=== PATIENT | female | born 2000 | race Caucasian/White ===

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

== ENCOUNTER 2019-02-13 22:14 | Emergency (ER) | payer SELFPAY ==
[2019-02-13 22:29] VITALS: BP 120/78; PULSE 98; TEMP 98.2; BMI 27.8
--- NOTE | 2019-02-14 00:43 | PDOC ---
Documentation entered by Clarisa Wesley SCRIBE, acting as scribe for Kyleigh Todd MD. Kyleigh Todd MD: This documentation has been prepared by the scribe, Clarisa Wesley SCRIBE, under my direction and personally reviewed by me in its entirety. I confirm that the documentation accurately reflects all work, treatment, procedures, and medical decision making performed by me. History of Present Illness - General Chief Complaint: Vaginal Bleeding Stated Complaint: ABDOMINAL PAIN Time Seen by Provider: 02/13/19 23:37 History Source: Patient Exam Limitations: No Limitations - History of Present Illness Initial Comments: 02/14/19 00:47 The patient is a 19 year old female, , currently 8 weeks with no significant past medical history who presents to the ED with 2 weeks of vaginal bleeding associated with bilateral lower quadrant abdominal cramping, progressively getting worse after she ate sweet crepe. Pt reports passing clots and going through 5 pads per day. Pt reports nausea and 1 episode of nbnb emesis. As per patient she went to [facility] 2 weeks ago at the initial start of her vaginal bleeding, found out she was , was told to f/u with [facility]LINE ACTIV[facility] , however, the patient did not. Patient notes she went to [facility] ED again this Tuesday (02/11/19) because of continued cramping and was given morphine, Tylenol, and zofran, noted her HCG was low, and could not appreciate anything on [employer]. Patient reports she followed up with her PCP on Tuesday (02/12/19 ) and states that her HCG was 300. The patient denies chest pain, SOB, headache and dizziness. Denies fever, chills , cough, diarrhea and constipation. Denies dysuria, frequency, urgency and hematuria. Allergies: NKDA PCP: Dr. Suzy Davenport Past History - Past Medical History Allergies/Adverse Reactions: Allergies Allergy/AdvReac Type Severity Reaction Status Date / Time No Known Allergies Allergy Verified 03/21/17 02:41 Home Medications: Ambulatory Orders Cephalexin Monohydrate [Keflex -] 500 mg PO BID #10 capsule 02/14/19 COPD: No - Psycho Social/Smoking Cessation Hx Smoking History: Never smoked Have you smoked in the past 12 months: No Hx Alcohol Use: No Drug/Substance Use Hx: No Substance Use Type: None Review of Systems - Review of Systems Able to Perform ROS?: Yes Comments:: 02/14/19 00:48 GENERAL/CONSTITUTIONAL: No fever or chills. No weakness. HEAD, EYES, EARS, NOSE AND THROAT: No change in vision. No ear pain or discharge. No sore throat. CARDIOVASCULAR: No chest pain or shortness of breath. RESPIRATORY: No cough, wheezing, or hemoptysis. GASTROINTESTINAL: +Abdominal cramping, nausea, and vomiting. No diarrhea or constipation. GENITOURINARY: No dysuria, frequency, or change in urination. PELVIC: +Vaginal bleeding with clots. MUSCULOSKELETAL: No joint or muscle swelling or pain. No neck or back pain. SKIN: No rash NEUROLOGIC: No headache, vertigo, loss of consciousness, or change in strength/ sensation. ENDOCRINE: No increased thirst. No abnormal weight change. HEMATOLOGIC/LYMPHATIC: No anemia, easy bleeding, or history of blood clots. ALLERGIC/IMMUNOLOGIC: No hives or skin allergy. *Physical Exam - Vital Signs Last Vital Signs Temp Pulse Resp BP Pulse Ox 98.2 F 98 H 20 120/78 100 02/13/19 22:21 02/13/19 22:21 02/13/19 22:21 02/13/19 22:21 02/13/19 22:21 - Physical Exam Comments: 02/14/19 00:58 GENERAL: Awake, alert, and fully oriented, in no acute distress NECK: Normal ROM, supple, no lymphadenopathy, JVD, or masses LUNGS: Breath sounds equal, clear to auscultation bilaterally. No wheezes, and no crackles HEART: Regular rate and rhythm, normal S1 and S2, no murmurs, rubs or gallops ABDOMEN: Soft, normoactive bowel sounds. No guarding, no rebound. No masses PELVIC: + mild L adnexal tenderness. + scant blood in vaginal vault, No CME, Cervix closed. EXTREMITIES: Normal range of motion, no edema. No clubbing or cyanosis. No cords, erythema, or tenderness NEUROLOGICAL: Cranial nerves II through XII grossly intact. SKIN: Warm, Dry, normal turgor, no rashes or lesions noted. ED Treatment Course - LABORATORY CBC & Chemistry Diagram: 02/14/19 00:40 02/14/19 00:40 Medical Decision Making - Medical Decision Making 02/14/19 00:40 This is a 19-year-old female who states she is 8 weeks and has had vaginal spotting and cramping for the past 2 weeks and has used 5 pads a day 02/14/19 01:49 LMP was December 21 Her beta-hCG is only 315 Hemoglobin is 13 and hematocrit is 39 with adequate platelets, has no anemia Chemistries were reviewed she has normal renal function, electrolytes are within normal limits as are her LFTs however Her glucose is elevated to 145 UA shows a mild UTI which we started antibiotics Blood type is O+ Transvaginal ultrasound shows no right ovarian torsion, color flow with appropriate arterial and venous waveforms Bowel gas obscuring the left ovary Small physiologic free fluid anterior and posterior cul-de-sac Normal uterus, there is thickened endometrial stripe of 3 mm Patient has an appointment to see her PCP tomorrow and is told to follow-up she will need Plan a repeat beta-hCG and pelvic ultrasound in 48 hours Impression threatened AB, UTI Impression early versus incomplete AB 02/14/19 02:01 Discharge - Discharge Information Problems reviewed: No Clinical Impression/Diagnosis: Vaginal bleeding affecting early , Hyperglycemia Qualifiers: Weeks of gestation: less than 8 weeks Qualified Code(s): Z3A.01 - Less than 8 weeks gestation of UTI (urinary tract infection) Qualifiers: Urinary tract infection type: site unspecified Hematuria presence: without hematuria Qualified Code(s): N39.0 - Urinary tract infection, site not specified Condition: Stable Disposition: HOME - Additional Discharge Information Prescriptions: Cephalexin Monohydrate [Keflex -] 500 mg PO BID #10 capsule - Follow up/Referral Referrals: Suzy Davenport MD [Primary Care Provider] - - Patient Discharge Instructions Patient Printed Discharge Instructions: DI for Urinary Tract Infection (UTI), DI for Vaginal Bleeding During Additional Instructions: YOU NEED TO HAVE REPEAT BHCG AND PELVIC ULTRASOND IN 48 HOURS PLEASE KEEP YOUR APPOINTMENT WITH YOUR DOCTOR TOMORROW - Post Discharge Activity
[2019-02-14 01:15] LABS: HEMATOCRIT 39.3 % (32.4-45.2); HEMOGLOBIN 13.2 GM/dL (10.7-15.3); MCH 30.4 pg (25.7-33.7); MCHC 33.6 g/dl (32.0-36.0); MEAN CELL VOLUME 90.6 fl (80-96); MEAN PLT VOLUME 11.2 fl (7.5-11.1); PLATELET COUNT 290 K/MM3 (134-434); RBC 4.33 M/mm3 (3.60-5.2); RDW 12.8 % (11.6-15.6); WHITE BLOOD COUNT 18.4 K/mm3 (4.0-10.0)
[2019-02-14 01:18] LABS: EPI CELLS 25.8 /HPF (0-5/HPF); HYALINE CASTS 13 /lpf (0-8); PH,URINE 6.5 (5.0-8.0); URINE APPEARANCE CLOUDY; URINE BACTERIA 562.9 /hpf (NEGATIVE); URINE BILIRUBIN NEGATIVE (NEGATIVE); URINE COLOR DK YELLOW; URINE GLUCOSE (UA) NEGATIVE (NEGATIVE); URINE KETONE TRACE (NEGATIVE); URINE LEUK ESTERASE 1+ (NEGATIVE); URINE NITRITE NEGATIVE (NEGATIVE); URINE PROTEIN 1+ (NEGATIVE); URINE RBC 142 /hpf (0-4); URINE WBC 15 /hpf (0-5)
[2019-02-14 01:40] LABS: ALBUMIN 4.2 g/dl (3.4-5.0); BILIRUBIN,TOTAL 0.4 mg/dL (0.2-1); BLOOD UREA NITROGEN 11.6 mg/dL (7-18); CALCIUM 9.3 mg/dL (8.5-10.1); CREATININE 0.8 mg/dL (0.55-1.3); POTASSIUM 3.8 mmol/L (3.5-5.1); TOT PROT 7.5 g/dl (6.4-8.2)
[2019-02-14] MEDS ORDERED: ACETAMINOPHEN 325 MG TABLET (FP) PO ONE (01:45)
[2019-02-14] MEDS ORDERED: ACETAMINOPHEN 325 MG TABLET (FP) ONE (01:51)
== END 2019-02-14 02:30 | disposition home or self-care (01) ==
LOC: JER 22:14
DX: O26.891 Other specified pregnancy related conditions, first trimester (principal); O20.0 Threatened abortion; O23.41 Unspecified infection of urinary tract in pregnancy, first trimester; R73.9 Hyperglycemia, unspecified; Z3A.08 8 weeks gestation of pregnancy
CPT/HCPCS: 36415; 76830-TC; 80053; 81003; 84702; 85027; 86850; 86900; 86901; 99283-25

== ENCOUNTER 2019-02-15 20:09 | Emergency (ER) | payer SELFPAY ==
--- NOTE | 2019-02-15 20:11 | PDOC ---
Rapid Medical Evaluation Time Seen by Provider: 02/15/19 20:10 Medical Evaluation: Allergies Allergy/AdvReac Type Severity Reaction Status Date / Time No Known Allergies Allergy Verified 03/21/17 02:41 02/15/19 20:10 HPI: Vaginal Bleeding and abdominal pain PE: No gross deficits ORDERS: Labs and US Discharge Disposition - Diagnosis Vaginal bleeding affecting early - Referrals - Patient Instructions - Post Discharge Activity
[2019-02-15 20:15] VITALS: BP 123/75; PULSE 88; TEMP 98.2; BMI 25.6
[2019-02-15 20:58] LABS: BASO % 0.5 % (0-2.0); EOS % 2.4 % (0-4.5); HEMATOCRIT 33.1 % (32.4-45.2); HEMOGLOBIN 11.3 GM/dL (10.7-15.3); LYMPH % 12.6 % (8-40); MCH 30.9 pg (25.7-33.7); MCHC 34.3 g/dl (32.0-36.0); MEAN CELL VOLUME 90.2 fl (80-96); MEAN PLT VOLUME 10.5 fl (7.5-11.1); MONO % 4.1 % (3.8-10.2); NEUT % 80.4 % (42.8-82.8); PLATELET COUNT 256 K/MM3 (134-434); RBC 3.67 M/mm3 (3.60-5.2); RDW 12.9 % (11.6-15.6); WHITE BLOOD COUNT 11.7 K/mm3 (4.0-10.0)
[2019-02-15 21:39] LABS: EPI CELLS 4.6 /HPF (0-5/HPF); HYALINE CASTS 7 /lpf (0-8); PH,URINE 8.5 (5.0-8.0); URINE APPEARANCE TURBID; URINE BACTERIA 79.7 /hpf (NEGATIVE); URINE BILIRUBIN NEGATIVE (NEGATIVE); URINE COLOR YELLOW; URINE GLUCOSE (UA) NEGATIVE (NEGATIVE); URINE KETONE 1+ (NEGATIVE); URINE LEUK ESTERASE NEGATIVE (NEGATIVE); URINE NITRITE NEGATIVE (NEGATIVE); URINE PROTEIN NEGATIVE (NEGATIVE); URINE RBC 1 /hpf (0-4); URINE WBC 2 /hpf (0-5)
[2019-02-15] MEDS ORDERED: SODIUM CHLORIDE 0.9% 500 ML INFUS.BAG IV ONE (22:26)
[2019-02-15] MEDS ORDERED: ACETAMINOPHEN 1000 MG/100 ML VIAL (NON FORMULARY) IVPB ONE (22:49)
[2019-02-15 23:01] LABS: BASO % 0.6 % (0-2.0); EOS % 2.3 % (0-4.5); HEMOGLOBIN 11.9 GM/dL (10.7-15.3); LYMPH % 13.7 % (8-40); MCH 31.5 pg (25.7-33.7); MCHC 35.1 g/dl (32.0-36.0); MEAN CELL VOLUME 89.8 fl (80-96); MEAN PLT VOLUME 11.3 fl (7.5-11.1); MONO % 3.2 % (3.8-10.2); NEUT % 80.2 % (42.8-82.8); PLATELET COUNT 272 K/MM3 (134-434); RBC 3.78 M/mm3 (3.60-5.2); RDW 13.1 % (11.6-15.6); WHITE BLOOD COUNT 10.7 K/mm3 (4.0-10.0)
[2019-02-15] MEDS ORDERED: ACETAMINOPHEN INJECTION 100 ML IVPB ONE (23:19)
--- NOTE | 2019-02-16 01:00 | PDOC ---
Documentation entered by Connor Redd SCRIBE, acting as scribe for Yaima Nath MD. Yaima Nath MD: This documentation has been prepared by the Tramaine rose Daniel, SCRIBE, under my direction and personally reviewed by me in its entirety. I confirm that the documentation accurately reflects all work, treatment, procedures, and medical decision making performed by me. History of Present Illness - General Chief Complaint: Vaginal Bleeding Stated Complaint: BLEEDING Time Seen by Provider: 02/15/19 20:10 History Source: Patient Exam Limitations: No Limitations - History of Present Illness Initial Comments: 02/15/19 21:31 The patient is a 19 year old female with no past medical history here today for evaluation of vaginal bleeding and abdominal pain. The patient was seen 2 days ago for vaginal bleeding and received a full work up including an US and had an HCG of 315. Patient comes in today for persistent worsening vaginal bleeding and abdominal pain that started 2 weeks ago. She notes that around 2 PM her abdominal pain worsened and describes it as severe and cramping. Patient states that she took tylenol with no relief. She notes associated nausea and 7 episodes of diarrhea. She also notes that she had to use 5 panty liners and 3 pads today due to her vaginal bleeding. Patient denies headache, lightheadedness. Denies fever, chills. Denies chest pain, shortness of breath. Denies nausea, vomiting, diarrhea. LMP: 12/21/18 Allergies: NKA Surgical history: none PCP: Suzy Davenport Past History - Past Medical History Allergies/Adverse Reactions: Allergies Allergy/AdvReac Type Severity Reaction Status Date / Time No Known Allergies Allergy Verified 03/21/17 02:41 Home Medications: Ambulatory Orders Cephalexin Monohydrate [Keflex -] 500 mg PO BID #10 capsule 02/14/19 COPD: No - Reproductive History (#): 1 Para: 0 Therapeutic (s) & number: No Spontaneous : 0 - Psycho Social/Smoking Cessation Hx Smoking History: Never smoked Have you smoked in the past 12 months: No Hx Alcohol Use: No Drug/Substance Use Hx: No Substance Use Type: None Review of Systems - Review of Systems Able to Perform ROS?: Yes Comments:: 02/15/19 21:31 GENERAL/CONSTITUTIONAL: No fever or chills. No weakness. HEAD, EYES, EARS, NOSE AND THROAT: No change in vision. No ear pain or discharge. No sore throat. CARDIOVASCULAR: No chest pain or shortness of breath. RESPIRATORY: No cough, wheezing, or hemoptysis. GASTROINTESTINAL: +diarrhea. +nausea. No vomiting or constipation. GENITOURINARY: +vaginal bleeding. No dysuria, frequency, or change in urination. MUSCULOSKELETAL: No joint or muscle swelling or pain. No neck or back pain. SKIN: No rash NEUROLOGIC: No headache, vertigo, loss of consciousness, or change in strength/ sensation. ENDOCRINE: No increased thirst. No abnormal weight change. HEMATOLOGIC/LYMPHATIC: No anemia, easy bleeding, or history of blood clots. ALLERGIC/IMMUNOLOGIC: No hives or skin allergy. *Physical Exam - Vital Signs Last Vital Signs Temp Pulse Resp BP Pulse Ox 98.2 F 88 20 123/75 100 02/15/19 20:12 02/15/19 20:12 02/15/19 20:12 02/15/19 20:12 02/15/19 20:12 - Physical Exam Comments: 02/15/19 23:57 GENERAL: Awake, alert, and fully oriented, in no acute distress HEAD: No signs of trauma EYES: PERRLA, EOMI, sclera anicteric, conjunctiva clear ENT: Auricles normal inspection, hearing grossly normal, nares patent, oropharynx clear without exudates. Moist mucosa NECK: Normal ROM, supple, no lymphadenopathy, JVD, or masses LUNGS: Breath sounds equal, clear to auscultation bilaterally. No wheezes, and no crackles HEART: Regular rate and rhythm, normal S1 and S2, no murmurs, rubs or gallops ABDOMEN: Soft, nontender, normoactive bowel sounds. No guarding, no rebound. No masses EXTREMITIES: Normal range of motion, no edema. No clubbing or cyanosis. No cords, erythema, or tenderness NEUROLOGICAL: Cranial nerves II through XII grossly intact. Normal speech, normal gait SKIN: Warm, Dry, normal turgor, no rashes or lesions noted. ED Treatment Course - LABORATORY CBC & Chemistry Diagram: 02/15/19 22:57 - ADDITIONAL ORDERS Additional order review: 02/15/19 20:43 RBC 3.67 MCV 90.2 MCHC 34.3 RDW 12.9 MPV 10.5 Neutrophils % 80.4 Lymphocytes % 12.6 Monocytes % 4.1 Eosinophils % 2.4 Basophils % 0.5 Medical Decision Making - Medical Decision Making 02/15/19 21:32 Pt's Hb/HCT stable 02/15/19 22:07 Pt is taking keflex for a UTI; she has fewer bacteria in her urine and no leukicytes today. HCG has fone down from 315 to 189 02/15/19 22:09 Awaiting on her sono exam result 02/15/19 22:09 02/15/19 22:[address] Bunch, who suggests that pt follows as an outpatient; he is not concerned about the FF in the pelvis and the fact that pt's HB dropped 2 points. Pt is in fact hemodynamically stable and she has a HR of 88bpm. floorworker lasting doesnt feel that a laparoscopy is needed at this time. 02/15/19 23:17 Pt is receiving 1 L NSS as well as ofirmev Pt's soongram is still pending Pt has a CBC pending 02/15/19 23:53 Patient Name: JENNIFER MARTIN THIS IS A PRELIMINARY REPORT FROM [facility] CURATOR EXAM: Ultrasound Pelvic Transabdominal and Transvaginal Duplex scans ovaries (arterial/venous) imaging IMAGES: 31 EXAM DATE AND TIME: 2019-02-15 21:27:53 HISTORY: 19 year old woman: Retained products of conception. COMPARISON: None FINDINGS: The uterus is normal size, exhibits normal contours and echotexture. The uterus measures 5.3 x 3.2 x 4.1 cm ([id number]). The endometrial stripe measures 2.9 mm in thickness. There is a moderate amount of free fluid within the anterior and posterior posterior cul-de-sac. Ovarian arterial blood flow is normal by color and spectral Doppler assessment. There are no ovarian masses. The right ovary measures 3.3 x 1.9 x 2.4 cm. The left ovary measures 2.8 x 1.5 x 1.4 cm. IMPRESSION: Moderate amount of fluid within the anterior and posterior cul-de- sac. Endometrial stripe measuring 2.9 cm in thickness. 02/15/19 23:55 Pt's HCT is stable over the last few hrs. Her vag exam shows closed os and minimal blood in the cul de sac. Pt is stable to go home. Discharge - Discharge Information Problems reviewed: Yes Clinical Impression/Diagnosis: Miscarriage Condition: Improved Disposition: HOME - Admission No - Follow up/Referral Referrals: Suzy Davenport MD [Primary Care Provider] - - Patient Discharge Instructions Patient Printed Discharge Instructions: Miscarriage - Post Discharge Activity
== END 2019-02-16 00:14 | disposition home or self-care (01) ==
LOC: JER 20:09
PROC: 3E033NZ Introduction of Analgesics, Hypnotics, Sedatives into Peripheral Vein, Percutaneous Approach (ICD-10-PCS; principal; 2019-02-15)
PROC: 3E0337Z Introduction of Electrolytic and Water Balance Substance into Peripheral Vein, Percutaneous Approach (ICD-10-PCS; 2019-02-15)
DX: O03.9 Complete or unspecified spontaneous abortion without complication (principal)
CPT/HCPCS: 36415; 76817-TC; 81003; 84702; 84703; 85025; 86850; 86900; 86901; 99283-25; J0131

== ENCOUNTER 2022-10-07 20:31 | Emergency (ER) | payer OTHER ==
[2022-10-07 20:48] VITALS: BP 115/77; PULSE 79; RESP 18; TEMP 98.4; BMI 24.1
[2022-10-07] MEDS ORDERED: ACETAMINOPHEN 325 MG TABLET (FP) PO ONE (22:02)
[2022-10-07] MEDS ORDERED: DIPHTH,PERTUSS(ACELL),TET 0.5 ML DISP.SYRIN IM ONE ×2 (22:02→22:04)
[2022-10-07] MEDS ORDERED: ACETAMINOPHEN 325 MG TABLET (FP) ONE (22:03)
== END 2022-10-07 22:25 | disposition home or self-care (01) ==
LOC: JERFT 20:31
PROC: 3E0234Z Introduction of Serum, Toxoid and Vaccine into Muscle, Percutaneous Approach (ICD-10-PCS; principal; 2022-10-07)
DX: S16.1XXA Strain of muscle, fascia and tendon at neck level, initial encounter (principal); S00.81XA Abrasion of other part of head, initial encounter; S00.411A Abrasion of right ear, initial encounter; R51.9 Headache, unspecified; M54.2 Cervicalgia; Y04.2XXA Assault by strike against or bumped into by another person, initial encounter; Y93.9 Activity, unspecified; Y92.9 Unspecified place or not applicable
CPT/HCPCS: 90471; 90715; 99283-25

== ENCOUNTER 2023-04-04 23:30 | Emergency (ER) | payer SELFPAY ==
[2023-04-04 23:35] VITALS: BP 116/72; PULSE 92; RESP 18; TEMP 98.4; BMI 26.0
[2023-04-04 23:59] LABS: BASO % 0.5 % (0-2.0); EOS % 1.5 % (0-4.5); HEMATOCRIT 38.9 % (32.4-45.2); HEMOGLOBIN 13.4 GM/dL (10.7-15.3); MCH 30.8 pg (25.7-33.7); MCHC 34.4 g/dl (32.0-36.0); MEAN CELL VOLUME 89.5 fl (80-96); MEAN PLT VOLUME 10.8 fl (7.5-11.1); MONO % 5.7 % (3.8-10.2); NEUT % 72.3 % (42.8-82.8); PLATELET COUNT 219 10^3/uL (134-434); RBC 4.34 M/mm3 (3.60-5.2); RDW 12.8 % (11.6-15.6); WHITE BLOOD COUNT 12.6 K/mm3 (4.0-10.0)
[2023-04-05 00:13] LABS: INR 1.05 (0.83-1.09); PROTHROMBIN TIME (PATIENT) 12.2 SEC (9.7-13.0)
[2023-04-05 00:15] LABS: ACTIVATED PTT 29.7 SECONDS (25.2-36.5)
[2023-04-05 00:17] LABS: POTASSIUM 3.5 mmol/L (3.5-5.1)
[2023-04-05 00:20] LABS: CALCIUM 9.1 mg/dL (8.5-10.1)
[2023-04-05 00:21] LABS: ALBUMIN 3.7 g/dl (3.4-5.0); BLOOD UREA NITROGEN 8.6 mg/dL (7-18)
[2023-04-05 00:23] LABS: CREATININE 0.6 mg/dL (0.55-1.3)
[2023-04-05 00:26] LABS: BILIRUBIN,TOTAL 0.6 mg/dL (0.2-1)
[2023-04-05 00:36] LABS: EPI CELLS >36 /uL (0-25.1); HYALINE CASTS 2 /uL (0-3.1); PH,URINE 5.5 (5.0-8.0); URINE APPEARANCE CLOUDY; URINE BACTERIA 249 /uL (0-1359); URINE BILIRUBIN NEGATIVE (NEGATIVE); URINE COLOR YELLOW; URINE GLUCOSE (UA) NEGATIVE (NEGATIVE); URINE KETONE 4+ (NEGATIVE); URINE LEUK ESTERASE TRACE (NEGATIVE); URINE NITRITE NEGATIVE (NEGATIVE); URINE PROTEIN NEGATIVE (NEGATIVE); URINE RBC 14 /uL (0-23.9); URINE UROBILINOGEN 0.2 mg/dL (0.2-1.0); URINE WBC 13 /uL (0-25.8)
== END 2023-04-05 01:36 | disposition home or self-care (01) ==
LOC: JER 23:30
DX: O20.9 Hemorrhage in early pregnancy, unspecified (principal); O26.891 Other specified pregnancy related conditions, first trimester; R10.9 Unspecified abdominal pain; Z3A.00 Weeks of gestation of pregnancy not specified
CPT/HCPCS: 36415; 80053; 81003; 84702; 85025; 85610; 85730; 86850; 86900; 86901; 87086; 87491; 87591; 99283-25

== ENCOUNTER 2023-04-05 18:51 | Emergency (ER) | payer SELFPAY ==
[2023-04-05 19:19] VITALS: BP 105/57; PULSE 84; RESP 18; TEMP 98.2; BMI 26.0
== END 2023-04-05 23:11 | disposition home or self-care (01) ==
LOC: JER 18:51
DX: O20.9 Hemorrhage in early pregnancy, unspecified (principal); Z3A.08 8 weeks gestation of pregnancy
CPT/HCPCS: 76801-TC; 99284-25

== ENCOUNTER 2023-08-02 11:43 | Observation (INO) | payer OTHER ==
[2023-08-02] MEDS: ELECTROLYTE-148 SOLN 1,000 ML IV SCH (12:30)
[2023-08-02] MEDS ORDERED: BETAMET ACET/BETAMET NA PH 30 MG/5 ML VIAL ONE (12:33)
[2023-08-02] MEDS: BETAMET ACET/BETAMET NA PH 30 MG/5 ML VIAL IM ONE (12:45)
[2023-08-02 12:57] LABS: BASO % 0.2 % (0-2.0); EOS % 0.9 % (0-4.5); HEMATOCRIT 34.3 % (32.4-45.2); HEMOGLOBIN 11.8 GM/dL (10.7-15.3); LYMPH % 15.6 % (8-40); MCH 31.8 pg (25.7-33.7); MCHC 34.5 g/dl (32.0-36.0); MEAN CELL VOLUME 92.2 fl (80-96); MONO % 4.7 % (3.8-10.2); NEUT % 78.6 % (42.8-82.8); PLATELET COUNT 186 10^3/uL (134-434); RBC 3.72 M/mm3 (3.60-5.2); RDW 12.4 % (11.6-15.6); WHITE BLOOD COUNT 8.8 K/mm3 (4.0-10.0)
[2023-08-02 12:59] LABS: PH,URINE 7.5 (5.0-8.0); URINE APPEARANCE CLEAR; URINE BILIRUBIN NEGATIVE (NEGATIVE); URINE COLOR YELLOW; URINE GLUCOSE (UA) NEGATIVE (NEGATIVE); URINE KETONE NEGATIVE (NEGATIVE); URINE LEUK ESTERASE NEGATIVE (NEGATIVE); URINE NITRITE NEGATIVE (NEGATIVE); URINE PROTEIN NEGATIVE (NEGATIVE); URINE UROBILINOGEN 0.2 mg/dL (0.2-1.0)
[2023-08-02 13:06] LABS: INR 0.92 (0.83-1.09); PROTHROMBIN TIME (PATIENT) 10.4 SEC (9.7-13.0)
[2023-08-02 13:09] LABS: ACTIVATED PTT 27.3 SECONDS (25.2-36.5)
[2023-08-02 13:16] LABS: CHLORIDE 104 mmol/L (98-107); POTASSIUM 3.6 mmol/L (3.5-5.1); SODIUM 137 mmol/L (136-145)
[2023-08-02 13:18] LABS: ANION GAP 6 mmol/L (4-13); BLOOD UREA NITROGEN 7.9 mg/dL (7-18); CALCIUM 9.2 mg/dL (8.5-10.1); CO2 27 mmol/L (21-32); GLUCOSE,RANDOM 81 mg/dL (74-106)
[2023-08-02 13:21] LABS: CREATININE 0.4 mg/dL (0.55-1.3)
[2023-08-02 13:44] LABS: SYPHILIS W/ RPR CONF NON-REACTIVE (NONREACTIVE)
[2023-08-02 14:27] VITALS: BMI 28.3
[2023-08-02] MEDS ORDERED: ACETAMINOPHEN 500 MG TABLET (FP) PO PRN (14:56)
[2023-08-03] MEDS: BETAMET ACET/BETAMET NA PH 30 MG/5 ML VIAL IM SCH (12:45)
[2023-08-03] MEDS ORDERED: BETAMET ACET/BETAMET NA PH 30 MG/5 ML VIAL ONE (12:51)
[2023-08-03 13:43] VITALS: BP 108/60; PULSE 72; RESP 18; TEMP 97.8
== END 2023-08-03 13:00 | disposition home or self-care (01) ==
LOC: JLDR 11:43
PROVIDERS: ADMIT Obstetrics & Gynecology; ATTEND Obstetrics & Gynecology
PROC: 3E0233Z Introduction of Anti-inflammatory into Muscle, Percutaneous Approach (ICD-10-PCS; principal; 2023-08-02)
PROC: 3E033GC Introduction of Other Therapeutic Substance into Peripheral Vein, Percutaneous Approach (ICD-10-PCS; 2023-08-02)
DX: O34.32 Maternal care for cervical incompetence, second trimester (principal); Z3A.24 24 weeks gestation of pregnancy; R10.2 Pelvic and perineal pain; Z87.891 Personal history of nicotine dependence
CPT/HCPCS: 36415; 80048; 81003; 85025; 85610; 85730; 86780; 86803; 86850; 86900; 86901; 87086; 96365; 96372; G0378

== ENCOUNTER 2023-11-03 19:17 | Inpatient (IN) | payer OTHER ==
[2023-11-03 20:06] LABS: BASO % 0.2 % (0-2.0); EOS % 0.5 % (0-4.5); HEMATOCRIT 34.6 % (32.4-45.2); MCH 30.4 pg (25.7-33.7); MCHC 34.5 g/dl (32.0-36.0); MEAN PLT VOLUME 10.1 fl (7.5-11.1); NEUT % 75.3 % (42.8-82.8); PLATELET COUNT 196 10^3/uL (134-434); RBC 3.94 M/mm3 (3.60-5.2); RDW 13.2 % (11.6-15.6); WHITE BLOOD COUNT 10.1 K/mm3 (4.0-10.0)
[2023-11-03 20:07] LABS: INR 0.87 (0.83-1.09); PROTHROMBIN TIME (PATIENT) 10.1 SEC (9.7-13.0)
[2023-11-03 20:09] LABS: ACTIVATED PTT 27.5 SECONDS (25.2-36.5)
[2023-11-03 20:12] LABS: POTASSIUM 3.5 mmol/L (3.5-5.1)
[2023-11-03 20:14] LABS: BLOOD UREA NITROGEN 11.4 mg/dL (7-18); CALCIUM 9.2 mg/dL (8.5-10.1)
[2023-11-03 20:18] LABS: CREATININE 0.6 mg/dL (0.55-1.3)
[2023-11-03 20:38] VITALS: BMI 31.6
[2023-11-03 21:09] LABS: HIV INTERPRETATION NEGATIVE (NEGATIVE)
[2023-11-04] MEDS ORDERED: OXYTOCIN 30 UNITS in 0.9% NS 30 UNIT/500 ML INFUS.BAG IVPB ONE (02:51)
[2023-11-04] MEDS: OXYTOCIN 30 UNITS in 0.9% NS 30 UNIT/500 ML INFUS.BAG IVPB SCH (03:00)
[2023-11-04] MEDS: ELECTROLYTE-148 SOLN 1,000 ML IV SCH (03:00)
[2023-11-04] MEDS ORDERED: FENTANYL/BUPIVACAINE/NS/PF - PCEA - 50 ML DISP.SYRIN EP ONE (09:13)
[2023-11-04] MEDS: FENTANYL/BUPIVACAINE/NS/PF - PCEA - 50 ML DISP.SYRIN EP SCH (09:41)
[2023-11-04] MEDS ORDERED: OXYTOCIN 20 UNITS in 0.9% NS 20 UNIT/1,000 ML INFUS.BAG IV ONE (11:28)
[2023-11-04] MEDS ORDERED: NALOXONE HCL 0.4 MG/ML VIAL IVPUSH PRN (12:00)
[2023-11-04] MEDS: OXYTOCIN 20 UNITS in 0.9% NS 20 UNIT/1,000 ML INFUS.BAG IV SCH (12:19)
[2023-11-04] MEDS ORDERED: WITCH HAZEL 50% (TUCKS) 40 PAD/JAR PAD TP PRN (12:40)
[2023-11-04] MEDS ORDERED: METHYLERGONOVINE MALEATE 0.2 MG/1 ML AMP IM PRN (12:40)
[2023-11-04] MEDS ORDERED: BISACODYL 10 MG SUPP.RECT RC PRN (12:40)
[2023-11-04] MEDS ORDERED: BENZOCAINE 28 GM HEMORRHOIDAL OINTMENT TP PRN (12:40)
[2023-11-04 15:04] VITALS: RESP 18
[2023-11-04] MEDS: IBUPROFEN 600 MG TABLET (FP) PO PRN (20:16)
[2023-11-04] MEDS: BENZOCAINE 20% 57 GM BOTTLE TP PRN (20:17)
[2023-11-05 06:51] LABS: BASO % 0.5 % (0-2.0); EOS % 0.8 % (0-4.5); HEMATOCRIT 30.8 % (32.4-45.2); HEMOGLOBIN 10.7 GM/dL (10.7-15.3); LYMPH % 24.2 % (8-40); MCHC 34.7 g/dl (32.0-36.0); MEAN CELL VOLUME 89.4 fl (80-96); MEAN PLT VOLUME 10.1 fl (7.5-11.1); NEUT % 67.5 % (42.8-82.8); PLATELET COUNT 167 10^3/uL (134-434); RBC 3.45 M/mm3 (3.60-5.2); WHITE BLOOD COUNT 9.1 K/mm3 (4.0-10.0)
[2023-11-05] MEDS: PRENATAL VITAMINS W/ FOLIC ACID TABLET (FP) PO SCH (09:32)
[2023-11-05] MEDS: SENNOSIDES/DOCUSATE COMBO (SENNA PLUS) TABLET (UD) PO PRN (20:50)
[2023-11-05] MEDS: ACETAMINOPHEN 325 MG TABLET (FP) PO PRN (23:03)
[2023-11-06 09:56] VITALS: BP 95/61; PULSE 72; TEMP 98.4
== END 2023-11-06 12:30 | disposition home or self-care (01) | DRG 560 ==
LOC: JLDR 19:17 → J3W 11-04 14:55
PROVIDERS: ADMIT Specialist; ATTEND Obstetrics & Gynecology
PROC: 10E0XZZ Delivery of Products of Conception, External Approach (ICD-10-PCS; principal; 2023-11-04)
PROC: 0UQMXZZ Repair Vulva, External Approach (ICD-10-PCS; 2023-11-04)
DX: O24.429 Gestational diabetes mellitus in childbirth, unspecified control (principal); O70.0 First degree perineal laceration during delivery; Z3A.39 39 weeks gestation of pregnancy; Z37.0 Single live birth
CPT/HCPCS: 36415; 59409; 80048; 82962; 85025; 85610; 85730; 86780; 86850; 86900; 86901; 87389